=== PATIENT | female | born 1985 | race African-American/Black ===

== ENCOUNTER 2022-02-18 03:56 | Emergency (ER) | payer OTHER ==
[~2022-02-18] VITALS: Ht 160 cm; Wt 80.3 kg
[2022-02-18 04:58] LABS: POTASSIUM 3.8 mmol/L (3.6-5.2); SODIUM 139 mmol/L (136-145)
[2022-02-18 05:00] LABS: PLATELET COUNT 191 K/uL (152-353)
[2022-02-18 05:13] LABS: PARTIAL THROMBOPLASTIN TIME 26.7 SECONDS (24.5-33.6)
[2022-02-18 07:10] VITALS: BP 106/54; TEMP 98.9
== END 2022-02-18 07:10 | disposition home or self-care (01) ==
LOC: ED 03:56
PROVIDERS: Family Medicine
DX: R07.89 Other chest pain (principal); R10.32 Left lower quadrant pain
CPT/HCPCS: 80053; 81000; 82150; 82550; 83690; 84484; 85027; 85379; 85610; 85730; 93005; 96374; 96375; 99284; J1885; J2405